=== PATIENT | male | born 2000 | race Hispanic/Latino ===

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

== ENCOUNTER 2022-11-01 16:48 | Emergency (ER) | payer MEDICAID, OTHER ==
[~2022-11-01] VITALS: Ht 167.6 cm; Wt 90.7 kg
[2022-11-01] MEDS ORDERED: DiphenhydrAMINE HCL 50 MG/ML VIAL IM ONE (18:30)
[2022-11-01 20:17] VITALS: BP 125/71
== END 2022-11-01 20:50 | disposition home or self-care (01) ==
LOC: EDH 16:48
DX: G25.9 Extrapyramidal and movement disorder, unspecified (principal); J45.909 Unspecified asthma, uncomplicated
CPT/HCPCS: 99283; 96372; J1200